=== PATIENT | female | born 1945 | race Caucasian/White ===

== ENCOUNTER 2017-08-18 19:45 | Emergency (ER) | payer MEDICARE, OTHER ==
[~2017-08-18] VITALS: Ht 157.5 cm; Wt 70.3 kg
[~2017-08-18 19:45] MED LIST: ATOM40 PO; BUTASPCAF PO; CARI350 PO; CETI10 PO; CIME400 PO; DIPH50 PO; FLUSAL1005 IH; FLUT.05NI; GABA600 PO; METO50ER PO; MONT10T PO; OXYC15ER PO; STOOL SOFTENER PO; THYROID PO
== END 2017-08-18 22:13 | disposition home or self-care (01) ==
LOC: ER 19:45
DX: S52.571A Other intraarticular fracture of lower end of right radius, initial encounter for closed fracture (principal); Z23 Encounter for immunization; I10 Essential (primary) hypertension; J45.909 Unspecified asthma, uncomplicated; Z88.6 Allergy status to analgesic agent; Z88.0 Allergy status to penicillin; Z88.5 Allergy status to narcotic agent; Z88.8 Allergy status to other drugs, medicaments and biological substances; Z91.048 Other nonmedicinal substance allergy status; Z88.1 Allergy status to other antibiotic agents; Z79.899 Other long term (current) drug therapy; Z87.891 Personal history of nicotine dependence; W01.0XXA Fall on same level from slipping, tripping and stumbling without subsequent striking against object, initial encounter
CPT/HCPCS: 29105; 73110; 81000; 90471; 90714; 99283

== ENCOUNTER 2018-06-08 08:20 | Inpatient (IN) | payer MEDICARE, OTHER ==
[~2018-06-08] VITALS: Ht 157.5 cm; Wt 66.7 kg
[~2018-06-08 08:20] MED LIST changes: +AMLO5 PO; +ASCO500 PO; +ASPI81CH PO; +ATOM60 PO; +Acidophilus La100 GM PO; +BENZ100A PO; +CALCIUM PO; +CETI5 PO; +CHILDREN'S FLO9.9 ML; +CHROMIUM400 MCG PO; +COQ1050 MG PO; +CYAN500 PO; +Carisoprodol350 MG PO; +Cinnamon500 MG PO; +ERGO400 PO; +Echinacea400 MG PO; +FIORINAL-COD 31 EACH PO; +FLUT1DIS2 INH; +FOLI400 PO; +Flovent 110 MCG12 GM; +GRALISE300 MG PO; +Gentak3.5 GM TOP; +L-LYSINE500 MG PO; +LIDO700A20 TOP; +LOSA50 PO; +MAGNESIUM PO; +Meribin5 MG PO; +NIAC250ER PO; +OXAYDO5 MG PO; +POTA8 PO; +ROXYBOND5 MG PO; +Refresh Eye Dr1 EACH BOTHEYES; +SELENIMIN PO; +SERT100 PO; +Salmon Oil 1,01 EACH PO; +THYR60 PO; +TOCO1000 PO; +TRIA15CR3 TOP; +VITAMIN B-1 PO; +VITAMIN B12 PO; +VITAMIN B6 PO; +VITAMINS LIPOTROPICS PO; +Vitamin A10000 UNIT PO; +[UNRECOGNIZED DRUG - OTHER] PO
--- NOTE | 2018-06-08 09:51 | NUR ---
History, Chart, Medications and Allergies reviewed before start of procedure. Patient confirms NPO status and agrees with scheduled surgery. Lungs clear T/O to Auscultation. Patient reports completing Chlorhexadine shower X1 prior to admission to hospital. Pre-Op teaching done. Pt verbalizes understanding. PINKY RING IN LABELED BAG AND PLACED IN LABELED BLUE BELONGINGS BAG.
--- NOTE | 2018-06-08 10:09 | NUR ---
PATIENT REFUSES TYLENOL DUE TO LIVER DISEASE. WILL NOTIFY DR BROWER. PATIENT UP TO BR FOR UNMEASURED VOID.
[2018-06-08] MEDS ORDERED: Neurontin600 MG PO (10:27)
--- NOTE | 2018-06-08 10:59 | NUR ---
BOAT DRIVER REPORT COMPLETED AT BEDSIDE.
--- NOTE | 2018-06-08 10:59 | NUR ---
NOZIN SWABS COMPLETED IN PREOP.
--- NOTE | 2018-06-08 11:01 | NUR ---
NOTIFIED DR BROWER REGARDING PATIENT REFUSAL FOR TYLENOL. DISCUSSED PCN ALLERGY AND NSAID ALLERGY, AFTER REVIEW OF LABS DECISION TO PROCEED ORDERED NO NEW ORDERS RECEIVED.
--- NOTE | 2018-06-08 11:05 | NUR ---
PATIENT UP AGAIN TO VOID PER REQUEST.
--- NOTE | 2018-06-08 11:32 | NUR ---
ASSISTING DR SELBY IN SDS WITH NERVE BLOCK WHILE WE WAIT FOR OR TO BE READY.
--- NOTE | 2018-06-08 13:29 | NUR ---
06/08/18 1329 Mary Johns ANCEF 2 GM IVPB ADM AT 1200 LIDOCAINE 1% WITH 1:200 EPI ADM AT 1232 TOTAL 10CC'S
[2018-06-09 05:39] LABS: BASOPHILS ABSOLUTE AUTO 0.01 K/mm3 (0.00-0.23); BASOPHILS PERCENT AUTO 0 % (0-2); EOSINOPHILS PERCENT AUTO 0 % (0-6); Hemoglobin 12.7 g/dL (11.5-16.0); IMMATURE GRAN ABSOLUTE AUTO 0.03 K/mm3 (0.00-0.10); IMMATURE GRAN PERCENT AUTO 0 % (0-1); LYMPHOCYTES ABSOLUTE AUTO 0.93 K/mm3 (0.84-5.20); LYMPHOCYTES PERCENT AUTO 8 % (21-46); MONOCYTES ABSOLUTE AUTO 0.99 K/mm3 (0.16-1.47); MONOCYTES PERCENT AUTO 9 % (4-13); Mean Corpuscular HGB 27.7 pg (26.0-34.0); Mean Corpuscular HGB Conc 32.6 g/dL (31.5-36.5); Mean Corpuscular Volume 85 fL (80-100); Mean Platelet Volume 10.7 fL (9.1-12.4); NEUTROPHILS ABSOLUTE AUTO 9.46 K/mm3 (1.96-9.15); NEUTROPHILS PERCENT AUTO 83 % (41-73); Platelet Count 250 K/mm3 (150-400); RDW Standard Deviation 39.7 fL (35.1-46.3); Red Blood Cell Count 4.58 M/mm3 (3.80-5.20); White Blood Cell Count 11.42 K/mm3 (4.00-11.30)
[2018-06-09 06:00] LABS: Anion Gap 4 mmol/L (6-16); Blood Urea Nitrogen 14 mg/dL (8-24); Bun/Creatinine Ratio 21.7 (12.0-20.0); CO2, Blood 31 mmol/L (21-32); Calcium, Blood 8.3 mg/dL (8.5-10.1); Chloride, Blood 103 mmol/L (98-108); Creatinine, Blood 0.65 mg/dL (0.40-1.00); Glomerular Filtration Rate >60 (60-); Glucose, Blood 119 mg/dL (70-99); Potassium, Blood 3.8 mmol/L (3.5-5.5); Sodium, Blood 138 mmol/L (136-145)
--- NOTE | 2018-06-09 07:51 | NUR ---
SHIFT SUMMARY PT IS POD 1 RIGHT TOTAL SHOULDER. SHE DENIED PAIN T/O THE NIGHT, REPORTED FIRST AND SECOND FINGERS STILL BEING NUMB. HER BP WAS ELEVATED SO SHE GOT ALL HER BP MEDS EARLY THIS MORNING BUT HER BP HAD NOT IMPROVED. SHE IS A SBA FOR AMBULATION. PT WAS UP EVERY HOUR OR TWO TO VOID. AQUACEL TO SHOULDER C/D/I, BRUISING NOTED AT SITE. REPORT PASSED TO ONCOMING SHIFT.
[2018-06-09] MEDS ORDERED: OXYC5 PO (15:13)
--- NOTE | 2018-06-09 15:50 | NUR ---
DISCHARGE: PT/FRIEND REPORTS UNDERSTANDING OF DISCHARGE INSTRUCTIONS. BELONGINGS SENT WITH PT INCLUDING DRESSINGS. SCRIPT AND OTHER PAPERWORK SENT WITH PT. PT REPORTS PAIN WELL CONTROLLED WITH PO PAIN MEDICATION. PT BEEN CLEARED BY THERAPY TO GO HOME. PT REPORTS FAMILY/FRIEND ABLE TO HELP PT AT HOME. IV OUT WNL.
== END 2018-06-09 16:01 | disposition home or self-care (01) | DRG 483 ==
LOC: SURS 08:20 → PRE IP 10:45 → SURS 17:44
PROVIDERS: ADMIT Orthopaedic Surgery
PROC: 0RRJ0JZ Replacement of Right Shoulder Joint with Synthetic Substitute, Open Approach (ICD-10-PCS; principal; 2018-06-08 10:45)
DX: M19.011 Primary osteoarthritis, right shoulder (principal); I10 Essential (primary) hypertension; K21.9 Gastro-esophageal reflux disease without esophagitis; Z88.0 Allergy status to penicillin; Z88.8 Allergy status to other drugs, medicaments and biological substances; Z91.030 Bee allergy status; Z87.891 Personal history of nicotine dependence
CPT/HCPCS: 36415; 73030; 80048; 83735; 85025; 88300; 94640; 94760; 97110; 97161; 97165; 97535; C1776; J0171; J0690; J0735; J1100; J1885; J2250; J2370; J2405; J2710; J2795; J3010; J7120

== ENCOUNTER 2018-12-27 08:13 | Day surgery (SDC) | payer MEDICARE, OTHER ==
[~2018-12-27 08:13] MED LIST changes: +Neurontin600 MG PO; +OXYC5 PO
== END 2018-12-27 22:44 | disposition home or self-care (01) ==
LOC: MOI US 08:13 → MOI MAM 08:45 → MOI US 08:45 → MOI MAM 12-31 07:30
DX: N64.1 Fat necrosis of breast (principal); R92.0 Mammographic microcalcification found on diagnostic imaging of breast
CPT/HCPCS: 19083; 19084; 77065; 88305; 88341; 88342; A4648

== ENCOUNTER → 2019-05-05 | Outpatient (CLI) | payer MEDICARE, OTHER ==
[2019-05-10 06:17] LABS: Stool Occult Bld Immuno 1 Negative (NEGATIVE)
== END | disposition home or self-care (01) ==
LOC: LAB SHORT 15:00 → LAB 15:00
PROVIDERS: Physician Assistant
DX: Z12.11 Encounter for screening for malignant neoplasm of colon (principal)
CPT/HCPCS: G0328

== ENCOUNTER 2024-05-15 22:08 | Inpatient (IN) | payer MEDICARE, OTHER ==
[~2024-05-15] VITALS: Ht 175.3 cm; Wt 54.2 kg
[~2024-05-15 22:08] MED LIST changes: +GABA300 PO; -Neurontin600 MG PO
[2024-05-15 22:19] LABS: Base Excess Venous -15.6 mmol/L; Bicarbonate Venous 13.5 mmol/L (24.0-30.0); PCO2 Venous 31.4 mmHg (38-42)
[2024-05-15] MEDS ORDERED: NS 1,000 ML IV SCH (22:20)
[2024-05-15 22:33] LABS: BASOPHILS ABSOLUTE AUTO 0.01 K/mm3 (0.00-0.23); BASOPHILS PERCENT AUTO 0 % (0-2); EOSINOPHILS PERCENT AUTO 0 % (0-6); Hematocrit 44.6 % (33.0-51.0); Hemoglobin 14.5 g/dL (11.5-16.0); IMMATURE GRAN ABSOLUTE AUTO 0.06 K/mm3 (0.00-0.10); IMMATURE GRAN PERCENT AUTO 0 % (0-1); LYMPHOCYTES ABSOLUTE AUTO 1.53 K/mm3 (0.84-5.20); LYMPHOCYTES PERCENT AUTO 11 % (21-46); MONOCYTES PERCENT AUTO 5 % (4-13); Mean Corpuscular HGB 29.1 pg (26.0-34.0); Mean Corpuscular HGB Conc 32.5 g/dL (31.5-36.5); Mean Corpuscular Volume 90 fL (80-100); NEUTROPHILS ABSOLUTE AUTO 11.46 K/mm3 (1.96-9.15); NEUTROPHILS PERCENT AUTO 83 % (41-73); Platelet Count 305 K/mm3 (150-400); RDW Coefficient Variation 14.3 % (11.7-14.2); RDW Standard Deviation 46.8 fL (35.1-46.3); Red Blood Cell Count 4.98 M/mm3 (3.80-5.20); White Blood Cell Count 13.76 K/mm3 (4.00-11.30)
[2024-05-15 22:59] LABS: Ethanol (Alcohol), Blood, Med <3 mg/dL
[2024-05-15 23:08] LABS: Source, Urine Clean Catch
[2024-05-15 23:10] LABS: Salicylate 3.8 mg/dL (2.8-20.0)
[2024-05-15 23:14] LABS: Bilirubin, Urine Neg (Neg); Blood, Urine 2+ (Neg); Glucose Qualitative, Urine 2+ (Neg); Ketones, Urine 1+ (Neg); Leukocyte Esterase, Urine Neg (Neg); Nitrite, Urine Neg (Neg); Protein, Urine 1+ (Neg); Urobilinogen, Urine NORM (Normal)
[2024-05-15 23:15] LABS: Appearance, Urine Clear (Clear); Color, Urine Yellow (P-Yellow)
[2024-05-15 23:20] LABS: Bacteria Not Seen /hpf; Mucus Light (0-Heavy); Red Blood Cells, Urine 0-2 /hpf (0-2); Squamous Epithelial Cells Rare /hpf (Few); White Blood Cells, Urine Not Seen /hpf (0-5)
[2024-05-15 23:22] LABS: Alanine Aminotransfer (ALT/SGP 71 U/L (12-78); Albumin, Blood 3.5 g/dL (3.4-5.0); Albumin/Globulin Ratio 0.8 (0.8-1.8); Alk Phos 180 U/L (50-136); Anion Gap 26 mmol/L (3-11); Aspartate Aminotrans (AST/SGOT 91 U/L (12-37); Bilirubin, Total 0.5 mg/dL (0.1-1.0); Blood Urea Nitrogen 37 mg/dL (8-24); Bun/Creatinine Ratio 46.6 (12.0-20.0); CO2, Blood 12 mmol/L (21-32); Calcium, Blood 10.3 mg/dL (8.5-10.1); Chloride, Blood 101 mmol/L (98-108); Creatinine, Blood 0.79 mg/dL (0.40-1.00); Globulin, Blood 4.4 g/dL (2.2-4.0); Glomerular Filtration Rate 77 (60-); Glucose, Blood 370 mg/dL (70-99); Potassium, Blood 3.9 mmol/L (3.5-5.5); Sodium, Blood 135 mmol/L (136-145); Total Protein, Blood 7.9 g/dL (6.4-8.2)
[2024-05-15 23:24] LABS: Acetaminophen, Random <2.0 ug/mL (10.0-30.0)
[2024-05-15 23:29] LABS: U Amphetamine Screen Not Detected; U Barbituate Screen DETECTED; U Benzodiazapine Screen Not Detected; U Buprenorphine Screen Not Detected; U Cannabinoids Screen Not Detected; U Cocaine Screen Not Detected; U Methadone Screen Not Detected; U Methamphetamine Screen Not Detected; U Opiates Screen Not Detected; U Oxycodone Screen DETECTED; U Phencyclidine Screen Not Detected
[2024-05-15 23:29] LABS: Base Excess Venous -13.8 mmol/L; Bicarbonate Venous 15.1 mmol/L (24.0-30.0); PCO2 Venous 26.4 mmHg (38-42); pH Blood Venous 7.29 (7.34-7.37)
[2024-05-15 23:50] LABS: CORONAVIRUS COVID-19 AG Negative (NEGATIVE); INFLUENZA A AG Negative (NEGATIVE); INFLUENZA B AG Negative (NEGATIVE)
[2024-05-15 23:52] LABS: Calcium, Ionized (POC) 1.21 mmol/L (1.10-1.46); Chloride (POC) 100 mmol/L (98-108); Glucose (ISTAT POC) 378 mg/dL (70-99); Hemoglobin (POC) 15.6 g/dL (12.0-16.0); Potassium (POC) 4.2 mmol/L (3.5-5.5); Sodium (POC) 133 mmol/L (135-148); Total CO2 (POC) 13 mmol/L (21-32)
[2024-05-16] VITALS (86 sets, daily range): BP systolic 113–213; BP diastolic 51–163
[2024-05-16] MEDS ORDERED: Vancomycin HCL 1,500 MG in NS 250 ML IV ONE (00:15)
[2024-05-16] MEDS ORDERED: CefTRIAXone Sodium 2,000 MG in NS 100 ML IV ONE (00:20)
[2024-05-16 00:33] LABS: Bicarbonate Venous 14.7 mmol/L (24.0-30.0); PCO2 Venous 24.2 mmHg (38-42); pH Blood Venous 7.29 (7.34-7.37)
[2024-05-16 02:30] LABS: PCO2 Arterial 29.4 mmHg (35-45); PO2 Arterial 340 mmHg (80-100); pH Blood Arterial 7.46 (7.35-7.45)
[2024-05-16] MEDS ORDERED: NS 1,000 ML IV ONE (05:00)
[2024-05-16] MEDS ORDERED: NS 1,000 ML IV SCH (05:50)
--- NOTE | 2024-05-16 05:51 | NUR ---
ASSUMED CARE FROM SB SANTANA FROM ED @ 7269
--- NOTE | 2024-05-16 05:55 | NUR ---
UPDATE INTUBATED WITH A 7.5 ETT @24 TEETH, SBP DURING 192/188 MAP 114, SBP 221/96 MAP 132 HR 88. DOCTOR AWARE. OG 18FR PLACED @54. XRAY COMFIRMED PLACEMENT. VENT SETTINGS 470//. PATIENT RECIEVED 10MG OF ETOMIDATE, 50MG OF ROCURONIUM DURING INTUBTAED ORDERED BY DR. ALBA.
--- NOTE | 2024-05-16 06:02 | NUR ---
UPDATE 2 RINGS REMOVED PLACED IN SPECIMEN CUP WITH PATIENT LABEL ON IT.
[2024-05-16] MEDS ORDERED: Etomidate 2MG / ML 10ML Vial IV ONE (06:03)
[2024-05-16] MEDS ORDERED: Rocuronium Bromide 10 MG/ML 5ML Injection IV ONE (06:03)
--- NOTE | 2024-05-16 06:46 | NUR ---
SHIFT SUMMARY PATIENT ADMISSION PROCESSED MUCH NURSE COULD DUE TO THE INTUBATED OF PATIENT. DOCTOR AND NURSES CALLED SON MUTIPLE TIME BUT NO RESPONSE. GOT AHOLD OF A NIECE WHICH INFORMED NURSE THAT SON AND MOTHER LIVE ON SAME PROPERTY BUT ARE KIND OF ESTRANGED. VETTING SETTINGS 470/16/5/100%. SBP 150-180'S HR IN THE 70'S. HICKS DRAINING TO GRAVITY. 0.9% NS RUNNING AT 100ML/HR. IV 22 IN LEFT FA, 20G IN R AC AND 20R WRIST. LUNGS BILATERALLY CRACKLES AND COARSE WITH LOWER LOBES DIMINSHED. MOTTLEING ON THE LOWER LEGS AND FEET AND LINGERS COLD TO THE TOUCH AND BLUE IN COLOR. MD AWARE. PATIENT DOES NOT FOLLOW COMMANDS, PUPILS REACTIVE BUT BILATERAL EYES ARE NYSTAGMUS. CALL LIGHT WITHIN REACH.
[2024-05-16] MEDS ORDERED: Dextrose 50% 50 ML Vial IV PRN (07:16)
[2024-05-16] MEDS ORDERED: Cetylpyridinium Chloride 1 EA MISC MT SCH (08:00)
[2024-05-16] MEDS ORDERED: HydrALAZINE HCl 20 MG / ML 1ML Vial IV PRN ×2 (08:25)
[2024-05-16] MEDS ORDERED: AmLODIPine Besylate 5 MG Tab PO SCH (08:30)
[2024-05-16 08:31] LABS: BASOPHILS ABSOLUTE AUTO 0.03 K/mm3 (0.00-0.23); BASOPHILS PERCENT AUTO 0 % (0-2); EOSINOPHILS PERCENT AUTO 0 % (0-6); Hemoglobin 14.5 g/dL (11.5-16.0); IMMATURE GRAN ABSOLUTE AUTO 0.05 K/mm3 (0.00-0.10); IMMATURE GRAN PERCENT AUTO 0 % (0-1); LYMPHOCYTES ABSOLUTE AUTO 1.02 K/mm3 (0.84-5.20); LYMPHOCYTES PERCENT AUTO 6 % (21-46); MONOCYTES ABSOLUTE AUTO 1.33 K/mm3 (0.16-1.47); MONOCYTES PERCENT AUTO 8 % (4-13); Mean Corpuscular HGB 29.1 pg (26.0-34.0); Mean Corpuscular HGB Conc 33.7 g/dL (31.5-36.5); Mean Corpuscular Volume 86 fL (80-100); Mean Platelet Volume 10.8 fL (9.1-12.4); NEUTROPHILS ABSOLUTE AUTO 14.52 K/mm3 (1.96-9.15); NEUTROPHILS PERCENT AUTO 86 % (41-73); Platelet Count 256 K/mm3 (150-400); RDW Standard Deviation 43.4 fL (35.1-46.3); Red Blood Cell Count 4.98 M/mm3 (3.80-5.20); White Blood Cell Count 16.95 K/mm3 (4.00-11.30)
[2024-05-16 08:34] LABS: Bicarbonate Venous 20.2 mmol/L (24.0-30.0); PCO2 Venous 39.4 mmHg (38-42); pH Blood Venous 7.33 (7.34-7.37)
[2024-05-16] MEDS ORDERED: HYDROXOCOBALAMIN IV ONE ×2 (08:50→09:00)
[2024-05-16 08:52] LABS: Albumin, Blood 2.8 g/dL (3.4-5.0); Albumin/Globulin Ratio 0.7 (0.8-1.8); Bilirubin, Total 0.4 mg/dL (0.1-1.0); Bun/Creatinine Ratio 36.8 (12.0-20.0); Calcium, Blood 9.1 mg/dL (8.5-10.1); Creatinine, Blood 0.79 mg/dL (0.40-1.00); Globulin, Blood 3.8 g/dL (2.2-4.0); Magnesium, Blood 2.4 mg/dL (1.6-2.4); Phosphorus, Blood 2.6 mg/dL (2.5-4.9); Potassium, Blood 3.3 mmol/L (3.5-5.5); Total Protein, Blood 6.6 g/dL (6.4-8.2)
[2024-05-16] MEDS ORDERED: NS IV ONE (09:00)
[2024-05-16] MEDS ORDERED: NiCARdipine HCL 50 MG in NS 250 ML IV SCH (09:25)
[2024-05-16] MEDS ORDERED: Azithromycin 500 MG in NS 250 ML IV ONE (10:00)
[2024-05-16] MEDS ORDERED: NiCARdipine HCL 500 MCG/5 ML SYR IV SCH (10:00)
--- NOTE | 2024-05-16 10:42 | NUR ---
PATIENT RECIEVING CYANOKIT, IV INFULTRATED, WAS CAUGHT IMMEDIATELY, STOPPED AND CHANGED IVS, PHARMACY NOTIFIED, LIMB ELEVATED AND PLACED IN HOT COMPRESS PER PHARMACIST HEART RHYTHM CHANGED, MD NOTIFIED, EKG WAS ORDERD AND COMPLETED
[2024-05-16] MEDS ORDERED: Acetaminophen 160MG / 5ML 10.15 UDC PO PRN (11:10)
--- NOTE | 2024-05-16 11:27 | NUR ---
CODE STATUS UPDATE Spoke with pt's son Wallace by phone. He requests changing pt's code status to DNR once educated on code status. Order received for DNR.
[2024-05-16] MEDS ORDERED: Hydrogen Peroxide 1.5 % Solution MT SCH (12:00)
[2024-05-16] MEDS ORDERED: Potassium Chloride 20 MEQ/15 ML UDC PO ONE (12:45)
[2024-05-16] MEDS ORDERED: Potassium Chloride 20 MEQ in NS 90 ML IV ONE (12:45)
[2024-05-16] MEDS ORDERED: Pantoprazole Sodium 40 MG Injection IV SCH (13:30)
[2024-05-16 15:32] LABS: Acinetobacter baumannii DNA Not Detected copy/mL (NOT DETECT); Enterobacter cloacae DNA Not Detected copy/mL (NOT DETECT); Escherichia coli DNA Not Detected copy/mL (NOT DETECT); Haemophilus influenzae DNA Not Detected copy/mL (NOT DETECT); Klebsiella aerogenes DNA Not Detected copy/mL (NOT DETECT); Klebsiella oxytoca DNA Not Detected copy/mL (NOT DETECT); Klebsiella pneumoniae DNA Not Detected copy/mL (NOT DETECT); Moraxella catarrhalis DNA Not Detected copy/mL (NOT DETECT); Proteus sp DNA Not Detected copy/mL (NOT DETECT); Pseudomonas aeruginosa DNA Not Detected copy/mL (NOT DETECT); Serratia marcescens DNA Not Detected copy/mL (NOT DETECT); Staphylococcus aureus DNA Not Detected copy/mL (NOT DETECT); Streptococcus agalactiae DNA Not Detected copy/mL (NOT DETECT); Streptococcus pneumoniae DNA Not Detected copy/mL (NOT DETECT); Streptococcus pyogenes DNA Not Detected copy/mL (NOT DETECT)
[2024-05-16 15:33] LABS: Adenovirus DNA Not Detected (NOT DETECT); Chlamydia pneumonia Not Detected (NOT DETECT); Human Coronavirus RNA Not Detected (NOT DETECT); Human Metapneumovirus RNA Not Detected (NOT DETECT); Influenza virus A RNA Not Detected (NOT DETECT); Influenza virus B RNA Not Detected (NOT DETECT); Legionella pneumophila Not Detected (NOT DETECT); Mycoplasma pneumoniae Not Detected (NOT DETECT); Parainfluenza virus RNA Not Detected (NOT DETECT); Respiratory syncytial Vir RNA Not Detected (NOT DETECT); Rhinovirus+Enterovirus RNA Not Detected (NOT DETECT)
[2024-05-16] MEDS ORDERED: Heparin Sodium,Porcine 5,000 UNIT/0.5 ML SDV SC SCH (16:00)
--- NOTE | 2024-05-16 17:26 | NUR ---
Spoke with pt's son Wallace. He understands the patient is mottled up to her abdomen. He requests pt be extubated and made comfortable. Dr. Kaminski ordered liberation from vent and comfort care.
[2024-05-16] MEDS ORDERED: LORazepam 2 MG/ML 1ML Injection IV PRN (17:40)
[2024-05-16] MEDS ORDERED: Morphine Sulfate 10 MG/ML 1MLSYR IV PRN (17:40)
--- NOTE | 2024-05-16 17:41 | NUR ---
Pt's son Wallace states no preference in mortuary, and states he may not answer the phone again tonight to mourn. He states he currently doesn't have any funds for post mortem care, the least expensive would be best.
[2024-05-16] MEDS ORDERED: Morphine Sulfate 10 MG/ML 1MLSYR INH PRN (17:55)
[2024-05-16] MEDS ORDERED: Haloperidol Lactate Inj. 5 MG/ML Injection IV PRN (17:55)
[2024-05-16] MEDS ORDERED: Ondansetron HCl 2 MG / ML 2ML Vial IV PRN (17:55)
[2024-05-16] MEDS ORDERED: Atropine Sulfate 1% Opth Soln 2ML BTL SL PRN (17:55)
--- NOTE | 2024-05-16 18:47 | NUR ---
PATIENT WAS TERMINALLY EXTUBATED @1755, COMFORT MEDICATIONS WERE GIVEN PRIOR TO EXTUBATION, SON WAS UPDATED AND HE DOES NOT WANT TO BE PRESENT, HE STATED HE DOES NOT HAVE A HOME IN [place] AND WOULD LIKE US TO PICK, HE WOULD LIKE TO BE NOTIFIED UPON CARDIAC , AND HE WILL TELEPHONE COIN BOX COLLECTOR HER BELONGINGS TOMORROW OR THE NEXT DAY.
[2024-05-16] MEDS ORDERED: CefTRIAXone Sodium 1,000 MG in NS 100 ML IV SCH (21:00)
--- NOTE | 2024-05-17 01:01 | NUR ---
UPDATE ASSUMED CARE OF PT AT 1900, PT UNRESPONSIVE TO VERBAL AND TACTILE STIMULI,NO GAG OR CORNEAL RESPONSE NOTED, AFEBRILE, SR 90S, RESP SHALLOW, ON RA, HICKS PATENT AND DRAINING MAROON/PURPLE URINE TO GRAVITY, SKIN COOL TO TOUCH WITH NOTED MOTTLING FROM TOES TO CHEST/STERNUM, MEDICATED X3 WITH MORPHINE 5 MG IVP FOR NOTED INCREASED RESPIRATIONS 30S AND LOUD BREATHING, PIV TO LEFT FOREARM AND RIGHT WRIST PATENT AND CLAMPED, PT TURNED AND REPOSITIONED FOR COMFORT EVERY 2 HOURS, SIDE RAILS UPX2
--- NOTE | 2024-05-17 05:09 | NUR ---
SHIFT SUMMARY/TRANSFERRED FROM ICU 11 TO MEDICAL FLOOR RM#[id number] @ 0115. PT WAS TRANSFERRED TO THE MEDICAL FLOOR HOSPITAL BED BY SLIDING WITH 3-PERSON ASSIST. PT HAS ALL HER BELONINGS WITH HER. PT IS NONRESPONSIVE AT THIS TIME. PT RESTING W/O ACUTE DISTRESS AT THIS TIME. HICKS DRAINING RED COLOR URINE. PT IS ON RA. RR EVEN>20. NO ACUTE EVENTS DURING THIS SHIFT. BED AT THE LOWEST POSITION, CALL LIGHT WITHIN REACH. FREQUENT CHECKS BY THE BEDSIDE. PER SLITTER PROCESSED FILM REPORT, PLEASE CALL [facility]; [phone] AFTER PT EXPIRES. SON WILL BIOFUELS PRODUCTION TECHNICIAN BELONINGS. SON NEEDS THE HOSPITAL STAFF TO PICK THE HOME. PT IS RESTING COMFORTABLY AT THIS TIME.
--- NOTE | 2024-05-17 08:00 | NUR ---
pt laying in bed nonresponsive, resp rapid, not wet, lungs have an insp snore, no cough noted, legs have motteling up to hips, right arm is a bit purple, lizarraga cath draining red wine colored urine, no s/s of distress noted, call light in reach.
--- NOTE | 2024-05-17 10:50 | NUR ---
pt found by Dr. Kaminski to be without resp or heart beat, checked by two nurses. her lines were removed, charge nurse notified.
== END 2024-05-17 16:02 | DRG 917 ==
LOC: ER 22:08 → ICUE 05-16 03:42 → MEDS 05-17 01:27 → ENPENDDIS 05-17 10:50 → MEDS 05-17 16:02
PROVIDERS: Student in an Organized Health Care Education/Training Program; ADMIT Internal Medicine
PROC: 0BH17EZ Insertion of Endotracheal Airway into Trachea, Via Natural or Artificial Opening (ICD-10-PCS; principal; 2024-05-15)
PROC: 5A1945Z Respiratory Ventilation, 24-96 Consecutive Hours (ICD-10-PCS; 2024-05-15)
PROC: 5A0935A Assistance with Respiratory Ventilation, Less than 24 Consecutive Hours, High Flow/Velocity Cannula (ICD-10-PCS; 2024-05-16)
PROC: 4A033R1 Measurement of Arterial Saturation, Peripheral, Percutaneous Approach (ICD-10-PCS; 2024-05-16)
PROC: 3E03329 Introduction of Other Anti-infective into Peripheral Vein, Percutaneous Approach (ICD-10-PCS; 2024-05-16)
DX: T58.11XA Toxic effect of carbon monoxide from utility gas, accidental (unintentional), initial encounter (principal); G93.41 Metabolic encephalopathy; J96.01 Acute respiratory failure with hypoxia; J18.9 Pneumonia, unspecified organism; I21.A1 Myocardial infarction type 2; E87.20 Acidosis, unspecified; Z66 Do not resuscitate; Z51.5 Encounter for palliative care; I10 Essential (primary) hypertension; E87.6 Hypokalemia; J45.909 Unspecified asthma, uncomplicated; K21.9 Gastro-esophageal reflux disease without esophagitis; E03.9 Hypothyroidism, unspecified; G89.29 Other chronic pain; K83.8 Other specified diseases of biliary tract; Z96.611 Presence of right artificial shoulder joint; Z96.612 Presence of left artificial shoulder joint; Z88.8 Allergy status to other drugs, medicaments and biological substances; Z91.048 Other nonmedicinal substance allergy status; Z88.1 Allergy status to other antibiotic agents; Z85.3 Personal history of malignant neoplasm of breast; Z87.891 Personal history of nicotine dependence; Z79.899 Other long term (current) drug therapy; Z79.890 Hormone replacement therapy; Z79.82 Long term (current) use of aspirin; Z90.11 Acquired absence of right breast and nipple; Z90.49 Acquired absence of other specified parts of digestive tract; Z98.51 Tubal ligation status; Z98.890 Other specified postprocedural states; Z88.0 Allergy status to penicillin
CPT/HCPCS: 0528U; 31500; 36415; 36600; 51702; 70450; 71045; 71260; 76705; 80047; 80053; 80320; 81001; 82375; 82550; 82803; 82947; 83605; 83735; 84100; 84484; 85014; 85025; 87040; 87428-QW; 93005; 93010; 93306; 94002; 96365-59; 96366-59; 96368; 99285-25; A9270; G0480; J0456; J0696; J1630; J1644; J2060; J2270; J2405; J2470; J3370; J3420; J3480; J7030; J7050; Q9967